=== PATIENT | male | born 2005 | race Caucasian/White ===

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

== ENCOUNTER 2023-04-05 18:10 | Outpatient (REF) | payer MEDICAID, SELFPAY | END 2023-04-05 18:11 | disposition home or self-care (01) | LOC: HO.HHCLNP 18:10 | PROVIDERS: Visit Provider General Practice | DX: L02.213 Cutaneous abscess of chest wall (principal) | CPT/HCPCS: 87070; 87147; 87205 ==